=== PATIENT | female | born 1980 | race Caucasian/White ===

== ENCOUNTER 2019-04-11 08:20 | Emergency (ER) | payer MEDICAID ==
[~2019-04-11] VITALS: Ht 165.1 cm; Wt 122.2 kg
[~2019-04-11 08:20] MED LIST: ASPI-535 PO; PREN1TAB17 PO
[2019-04-11 08:23] VITALS: BP 148/76; PULSE 89; RESP 18; Ht 165.1 cm; Wt 122.2 kg
[2019-04-11] MEDS ORDERED: HYDR-4011 PO (10:57)
[2019-04-11] MEDS ORDERED: CIPR500T4 PO (10:57)
[2019-04-11] MEDS ORDERED: DOCU-144 PO (10:57)
[2019-04-11] MEDS ORDERED: METR500T PO (10:57)
--- NOTE | 2019-04-11 12:30 | ERD ---
ER Documentation Chief Complaint Chief Complaint LEFT SIDE PELVIC PAIN & NAUSEA X4 DAYS, LMP 04/10/19 HPI 38-year-old female presenting with left-sided abdominal pain for the last 4 days. Patient feels nauseous but no fever. She states the pain seems to be worse at night. She has no history of kidney stones. Denies any fevers and denies vomiting. Denies pain in urination denies any changes in bowel movements. Denies medical problems. NKDA. Surgical history ectopic. Social history denies ROS All systems reviewed and are negative except as per history of present illness. Medications Home Meds Active Scripts Docusate Sodium* (Colace*) 100 Mg Capsule, 100 MG PO TID, #30 CAP Prov:PLACIDO MANDUJANO PA-C 04/11/19 Hydrocodone/Acetaminophen ([place] 5-325 Tablet) 1 Each Tablet, 1 TAB PO Q6H PRN for PAIN, #7 TAB Prov:PLACIDO MANDUJANO PA-C 04/11/19 Metronidazole* (Flagyl*) 500 Mg Tablet, 500 MG PO TID for 10 Days, TAB Prov:PLACIDO MANDUJANO PA-C 04/11/19 Ciprofloxacin Hcl* (Ciprofloxacin Hcl*) 500 Mg Tablet, 500 MG PO BID for 10 Days, TAB Prov:PLACIDO MANDUJANO PA-C 04/11/19 Reported Medications Aspirin Ec (Aspir 81) 81 Mg Tablet.dr, 81 MG PO DAILY 03/09/13 Vit-Iron Fumarate-FA ( Tablet) 1 Each Tablet, 1 EACH PO DAILY 03/09/13 Allergies Allergies: Coded Allergies: No Known Drug Allergies (Verified Allergy, Unknown, 03/12/14) PMhx/Soc Medical and Surgical Hx: pt denies Medical Hx History of Surgery: Yes (ectopic ) Anesthesia Reaction: No Hx Neurological Disorder: No Hx Respiratory Disorders: No Hx Cardiac Disorders: No Hx Psychiatric Problems: No Hx Miscellaneous Medical Probl: Yes () Hx Alcohol Use: No Hx Substance Use: No Hx Tobacco Use: No Smoking Status: Never smoker FmHx Family History: No diabetes, No coronary disease, No other Physical Exam Vitals Vital Signs Date Temp Pulse Resp B/P (MAP) Pulse Ox O2 O2 Flow FiO2 Time Delivery Rate 04/11/19 98.5 89 18 148/76 97 08:23 (100) Physical Exam GENERAL: The patient is well-appearing, well-nourished, in no acute distress HEENT: Atraumatic. Conjunctivae are pink. Pupils equal, round, and reactive to light. There is no scleral icterus. Tympanic membranes clear bilaterally. Oropharynx clear. NECK: C-spine is soft and supple. There is no meningismus. There is no cervical lymphadenopathy. CHEST: Clear to auscultation bilaterally. There are no rales, wheezes or rhonchi. HEART: Regular rate and rhythm. No murmurs, clicks, rubs or gallops. ABDOMEN: Tender to palpation over left abdomen. Mild rebound tenderness. No distention. No organomegaly. Result Diagram: 04/11/19 0857 04/11/19 0857 Results 24 hrs Laboratory Tests Test 04/11/19 08:57 White Blood Count 10.9 10^3/ul Red Blood Count 4.81 10^6/ul Hemoglobin 13.3 g/dl Hematocrit 41.0 % Mean Corpuscular Volume 85.2 fl Mean Corpuscular Hemoglobin 27.7 pg Mean Corpuscular Hemoglobin Concent 32.4 g/dl Red Cell Distribution Width 13.2 % Platelet Count 417 10^3/UL Mean Platelet Volume 9.0 fl Immature Granulocytes % 0.500 % Neutrophils % 64.9 % Lymphocytes % 26.1 % Monocytes % 6.3 % Eosinophils % 1.5 % Basophils % 0.7 % Nucleated Red Blood Cells % 0.0 /100WBC Immature Granulocytes # 0.050 10^3/ul Neutrophils # 7.1 10^3/ul Lymphocytes # 2.8 10^3/ul Monocytes # 0.7 10^3/ul Eosinophils # 0.2 10^3/ul Basophils # 0.1 10^3/ul Nucleated Red Blood Cells # 0.0 10^3/ul Urine Color YELLOW Urine Clarity CLEAR Urine pH 6.0 Urine Specific [place] 1.021 Urine Ketones NEGATIVE mg/dL Urine Nitrite NEGATIVE mg/dL Urine Bilirubin NEGATIVE mg/dL Urine Urobilinogen NEGATIVE mg/dL Urine Leukocyte Esterase NEGATIVE [place]/ul Urine Hemoglobin NEGATIVE mg/dL Urine Glucose NEGATIVE mg/dL Urine Total Protein NEGATIVE mg/dl Urine Test NEGATIVE Sodium Level 139 mmol/L Potassium Level 4.2 mmol/L Chloride Level 103 mmol/L Carbon Dioxide Level 27 mmol/L Anion Gap 9 Blood Urea Nitrogen 12 mg/dl Creatinine 0.69 mg/dl Est Glomerular Filtrat Rate mL/min > 60 mL/min Glucose Level 113 mg/dl Calcium Level 9.5 mg/dl Total Bilirubin 0.5 mg/dl Direct Bilirubin 0.00 mg/dl Indirect Bilirubin 0.5 mg/dl Aspartate Amino Transf (AST/SGOT) 27 IU/L Alanine Aminotransferase (ALT/SGPT) 30 IU/L Alkaline Phosphatase 78 IU/L Total Protein 8.0 g/dl Albumin 4.5 g/dl Globulin 3.50 g/dl Albumin/Globulin Ratio 1.28 Lipase 58 U/L Procedures/MDM DIAGNOSTIC IMAGING REPORT Patient: AGNES SHARPE : 1980 Age: 38 Sex: F MR #: [id number] DOS: 04/11/19 0848 Ordering MD: DIMITRIS MANDUJANO PA-C Location: [facility] Room/Bed: PROCEDURE: CT Abdomen and pelvis without contrast. CLINICAL INDICATION: Abdominal pain TECHNIQUE: CT scan of the abdomen and pelvis without contrast was performed on a multidetector high-resolution CT scan. . Coronal and sagittal reformatted images were obtained from the axial source images. Standard CT scan of the abdomen pelvis without contrast protocols were performed. The total exam CTDI equals 23.06 mGy and the total exam DLP equals 1474.31 mGy- cm. One or more of the following dose reduction techniques were used: - Automated exposure control. - Adjustment of the mA and/or kV according to patient size. Use of iterative reconstruction technique. Dicom images are available COMPARISON: None. FINDINGS: Malrotated right kidney. The kidneys are normal in size without calcified calculi hydronephrosis or intra renal masses bilaterally. No evidence ureteral calcified calculi or dilatation. Partially contracted otherwise unremarkable urinary bladder. Anteverted anteflexed uterus otherwise unremarkable. There is a 4.4 cm right ovarian cyst. There is 1.4 cm right ovarian cyst. Follow-up pelvic ultrasound is suggested. No left adnexal masses. No evidence of intra-abdominal free air, free fluid, abscesses or lymphadenopathy. Diffuse hepatic fatty infiltration without focal hepatic lesions. Spleen pancreas adrenal glands and gallbladder unremarkable. No evidence of biliary ductal dilation. Stomach, small bowel and appendix unremarkable. There are diverticular changes of the proximal descending colon with mild circumferential wall thickening and mild pericolonic induration/stranding consis tent with acute diverticulitis. Additional additional diverticular changes of the remainder of the descending and proximal sigmoid colon and transverse colon without diverticulitis in this distribution. Remainder the colon is unremarkable. Lung bases are unremarkable. Aorta unremarkable. Bilateral inguinal fat- containing hernias without herniated bowel or strangulation. Degenerative changes lower thoracic and lumbar spine without acute osseous findings are osteoblastic/osteolytic lesions. IMPRESSION: 1. Acute diverticulitis involving the proximal descending colon as described above without abscess or free air. 2. Additional diverticulosis of the remaining descending transverse and sigmoid colon without diverticulitis in this distribution. 3. No calcified urinary calculi or obstructive uropathy. 4. Unremarkable appendix. 5. Hepatic fatty infiltration without focal hepatic lesions. 6. Bilateral inguinal fat-containing hernias without herniated bowel or strangulation. MDM: 38-year-old female presenting with findings consistent with diverticulitis. There is no signs of perforation or abscess formation. Patient was discharged with supportive medications. Patient is recommended to follow-up with primary care in 1 to 2 days for close evaluation and reevaluation. Patient is told symptoms change or worsen to return immediately to the ER. All questions answered at discharge Departure Diagnosis: Primary Impression: Diverticulitis Condition: Stable Patient Instructions: Diverticulitis Additional Instructions: FOLLOW UP WITH YOUR PRIMARY CARE PHYSICIAN TOMORROW.Return to this facility if you are not improving as expected. PLACIDO MANDUJANO PA-C Apr 11, 2019 12:30
== END 2019-04-11 11:04 | disposition home or self-care (01) ==
LOC: FTE 08:20
DX: K57.32 Diverticulitis of large intestine without perforation or abscess without bleeding (principal); Z79.82 Long term (current) use of aspirin
CPT/HCPCS: 36415; 74176; 80053; 81003; 83690; 84703; 85025; Z7502